=== PATIENT | female | born 1985 | race Two or more races ===

== ENCOUNTER 2022-12-08 08:43 | Emergency (ER) | payer OTHER ==
[~2022-12-08] VITALS: Ht 167.6 cm; Wt 64.4 kg
[2022-12-08 08:52] VITALS: BP 110/78; TEMP 99.6
[2022-12-08] MEDS ORDERED: ALBU6.7H9 INH (09:21)
[2022-12-08] MEDS ORDERED: PSEUDOEPHEDRINE HCL 30 MG TABLET ONE (09:25)
[2022-12-08] MEDS ORDERED: PSEUDOEPHEDRINE HCL 30 MG TABLET PO ONE (09:30)
[2022-12-08 09:34] VITALS: O2SAT 100
== END 2022-12-08 09:34 | disposition home or self-care (01) ==
LOC: ER 08:50
DX: J32.9 Chronic sinusitis, unspecified (principal)